=== PATIENT | male | born 1985 ===

== ENCOUNTER → 2020-09-25 16:09 | Outpatient (CLI) | payer MEDICARE ==
[2020-09-25 17:15] LABS: BASOPHILS 0.3 % (0-2); EOSINOPHILS 0.9 % (0-7); HEMATOCRIT 41.1 % (42.0-54.0); HEMOGLOBIN 13.2 g/dL (13.5-17.5); IMMATURE GRANULOCYTES 3.4 % (0-5); LYMPHOCYTE ABS# 1.51 10x3/uL (1.32-3.57); LYMPHOCYTES 12.9 % (15-50); MCH 28.6 pg (26.0-34.0); MCHC 32.1 g/dL (31.0-37.0); MCV 89.2 fL (80.0-100.0); MONOCYTES 2.7 % (2-11); NEUTROPHIL ABS# 9.37 10x3/uL (1.78-5.38); NEUTROPHILS 79.8 % (40-80); RBC 4.61 10x6/uL (4.20-6.10); RDW 15.2 % (11.5-14.5); WBC 11.8 10x3/uL (4.8-10.8)
[2020-09-25 17:22] LABS: PLATELET COUNT 275 10x3/uL (130-400)
[2020-09-25 17:26] LABS: ALBUMIN 3.2 g/dL (3.4-5.0); ALKALINE PHOSPHATASE 59 U/L (30-120); ALT (SGPT) 33 U/L (10-68); BILIRUBIN - TOTAL 0.31 mg/dL (0.2-1.3); CALC OSMOLALITY 284 mosm/kg (275-300); CALCIUM 8.6 mg/dL (8.5-10.1); CARBON DIOXIDE 25.4 mmol/L (21.0-32.0); CHLORIDE - SERUM 103 mmol/L (98-107); CREATINE KINASE 57 UL (21-232); CREATININE - SERUM 1.1 mg/dL (0.6-1.3); GLUCOSE 133 mg/dL (74-106); POTASSIUM - SERUM 3.8 mmol/L (3.5-5.1); PROTEIN - SERUM 6.1 g/dL (6.4-8.2); SODIUM 140 mmol/L (136-145); UREA NITROGEN 24 mg/dL (7-18); eGFR NON AFRICAN AMERICAN 80 mL/min (90-120)
[2020-09-25 17:47] LABS: PROTEIN - URINE 165.4 mg/dL (0.0-11.9)
[2020-09-25 18:01] LABS: NITRITE NEGATIVE (NEGATIVE)
[2020-09-25 18:02] LABS: BILIRUBIN NEGATIVE (NEGATIVE); KETONE NEGATIVE (NEGATIVE); UROBILINOGEN NORMAL mg/dL (< 2)
== END | disposition home or self-care (01) ==
LOC: D.LABREF 16:09
PROVIDERS: ATTEND Specialist
DX: Z45.2 Encounter for adjustment and management of vascular access device (principal)

== ENCOUNTER → 2020-10-02 14:23 | Outpatient (CLI) | payer MEDICARE ==
[2020-10-02 15:08] LABS: BASOPHILS 0.4 % (0-2); EOSINOPHILS 2.5 % (0-7); HEMATOCRIT 43.1 % (42.0-54.0); HEMOGLOBIN 14.2 g/dL (13.5-17.5); LYMPHOCYTE ABS# 4.03 10x3/uL (1.32-3.57); LYMPHOCYTES 36.6 % (15-50); MCH 29.1 pg (26.0-34.0); MCHC 32.9 g/dL (31.0-37.0); MCV 88.3 fL (80.0-100.0); MEAN PLATELET VOLUME 9.9 fL (7.4-10.4); MONOCYTES 10.6 % (2-11); NEUTROPHIL ABS# 5.17 10x3/uL (1.78-5.38); NEUTROPHILS 46.9 % (40-80); PLATELET COUNT 237 10x3/uL (130-400); RBC 4.88 10x6/uL (4.20-6.10); RDW 15.3 % (11.5-14.5)
[2020-10-02 15:22] LABS: BILIRUBIN NEGATIVE (NEGATIVE); KETONE NEGATIVE (NEGATIVE); NITRITE NEGATIVE (NEGATIVE); UROBILINOGEN NORMAL mg/dL (< 2)
[2020-10-02 15:26] LABS: BACTERIA FEW HPF (NONE SEEN); SQUAMOUS EPITHELIAL NONE SEEN HPF (0-4); WHITE CELLS - URINE 0-5 HPF (0-1)
[2020-10-02 15:27] LABS: GRANULAR CAST 0-5 LPF (NONE SEEN)
[2020-10-02 15:48] LABS: CREATININE - URINE 144.5 mg/dL (30-125); PROTEIN - URINE 145.7 mg/dL (0.0-11.9)
[2020-10-02 15:53] LABS: CALC OSMOLALITY 277 mosm/kg (275-300); CARBON DIOXIDE 25.6 mmol/L (21.0-32.0); CHLORIDE - SERUM 100 mmol/L (98-107); CREATINE KINASE 56 UL (21-232); GLUCOSE 90 mg/dL (74-106); POTASSIUM - SERUM 3.6 mmol/L (3.5-5.1); SODIUM 136 mmol/L (136-145); UREA NITROGEN 28 mg/dL (7-18); eGFR NON AFRICAN AMERICAN 90 mL/min (90-120)
== END | disposition home or self-care (01) ==
LOC: D.LABREF 14:23
PROVIDERS: ATTEND Internal Medicine Nephrology
DX: R78.81 Bacteremia (principal); Z45.2 Encounter for adjustment and management of vascular access device

== ENCOUNTER → 2020-10-09 21:34 | Outpatient (CLI) | payer MEDICARE ==
[2020-10-09 22:16] LABS: CREATININE - URINE 96.3 mg/dL (30-125); PROTEIN - URINE 73.1 mg/dL (0.0-11.9)
[2020-10-09 22:19] LABS: BILIRUBIN NEGATIVE (NEGATIVE); KETONE NEGATIVE (NEGATIVE); NITRITE NEGATIVE (NEGATIVE); UROBILINOGEN NORMAL mg/dL (< 2)
== END | disposition home or self-care (01) ==
LOC: D.LABREF 21:34
PROVIDERS: ATTEND Internal Medicine Nephrology
DX: R78.81 Bacteremia (principal)